=== PATIENT | male | born 1995 | race Caucasian/White ===

== ENCOUNTER 2016-11-26 11:18 | Emergency (ER) | payer OTHER ==
[~2016-11-26] VITALS: Ht 167.6 cm; Wt 74.8 kg
[2016-11-26 11:23] VITALS: BP 151/88
--- NOTE | 2016-11-26 11:33 | ED ANIMAL BITE/WOUND CHECK ---
History of Present Illness General Chief Complaint: General Adult Stated Complaint: 2ND RABIES SHOT Source: patient, old records Exam Limitations: no limitations Vital Signs & Intake/Output Vital Signs & Intake/Output Vital Signs Date Time Temp Pulse Resp B/P B/P Pulse O2 O2 Flow FiO2 Mean Ox Delivery Rate 11/26 1123 98.8 68 18 151/88 99 Room Air Allergies Coded Allergies: Penicillins (Intermediate, UNSURE 11/26/16) cat pelt standardized allergenic ex (UNKNOWN 11/26/16) watermelon (UNKNOWN 11/26/16) Triage Note: HERE FOR SECOND RABIES SHOT. BIT BY A DOG ON 11/23. Triage Nurses Notes Reviewed? yes Onset: Abrupt Duration: day(s): (3), better Timing: remote history Is Injury an Animal Bite? Yes Animal Type: dog Severity: mild Severity Numbers: 3 No Modifying Factors: none Associated Symptoms: DENIES HPI: 21-year-old male presents for his second rabies vaccine after he was bit by a dog 3 days ago he was seen at [facility] at the time. He was started on anti-lice which she is still taking. He denies any other complaints there is no pain no fever chills discharge from the wound. He is otherwise without any complaints (JOHNIE MEDINA) Past History Travel History Traveled to [place] past 21 day No Medical History Any Pertinent Medical History? none Surgical History Surgical History: none Psychosocial History What is your primary language Estonian Tobacco Use: Never used ETOH Use: denies use Family History Hx Contributory? No (JOHNIE MEDINA) Review of Systems Review of Systems Constitutional: Reports: see HPI. All Other Systems: Reviewed and Negative Comments Review of systems: See HPI, All other systems negative. Constitutional, no chills no fever, no malaise HEENT: No visual changes no sore throat no congestion, Cardiovascular: No chest pain , no palpitation , Skin: no rashes, no change in skin Respiratory: No dyspnea no cough no sputum GI: No nausea no vomiting, no diarrhea, Muscle skeletal: No joint pain, , no back pain, no neck pain, Neurologic: no headache Psych: No stress Heme/endocrine: No bruising Immunology: No lymphadenopathy (JOHNIE MEDINA) Physical Exam Physical Exam General Appearance: well developed/nourished, no apparent distress, alert Comments: Well-developed well-nourished patient in no apparent distress. HEENT: Atraumatic,healing abrasions noted to the right nostril no surrounding induration and erythema extraocular motion intact Neck: Supple, FROM Back: FROM Respiratory: No respiratory distress. Patient speaking in full complete sentences. Breath sounds clear to auscultation bilaterally: NO W/R/R Extremities: full range of motion Neuro: awake, alert, and oriented to person, place and time. There were no obvious focal neurologic abnormalities. Skin: Warm & dry;No appreciable rash on exposed skin Psych: Mood affect normal, normal memory normal judgment. (JOHNIE MEDINA) Progress Differential Diagnosis: abscess, cellulitis Plan of Care: I discussed with the patient at length all of their results. Plan of care he has the schedule and return as to following up for his final to rabies vaccinations I had an extensive conversation regarding need for close follow up with their primary care physician this week as well as return precautions. I answered all of their questions, they feel comfortable with the plan and follow- up care. Advised to continue with Keflex he feels comfortable plan (JOHNIE MEDINA) Departure Departure Time of Disposition: 1134 Disposition: HOME OR SELF CARE Condition: Stable Clinical Impression Primary Impression: Rabies, need for prophylactic vaccination against Referrals: UNKNOWN (PCP/Family) Additional Instructions: Follow-up as scheduled for your final to rabies vaccinations return anytime sooner with any concerns or signs of infection. Departure Forms: Customer Survey General Discharge Information (JOHNIE MEDINA) PA/ELECTRONIC ASSEMBLER [employer] LEADER Co-Sign Statement Statement: ED Attending supervision documentation- I saw and evaluated the patient. I have also reviewed all the pertinent lab results and diagnostic results. I agree with the findings and the plan of care as documented in the PA's/ELECTRONIC ASSEMBLER GROUP LEADER's documentation. x I have reviewed the ED Record and agree with the PA's/ELECTRONIC ASSEMBLER GROUP LEADER's documentation. [] Additions or exceptions (if any) to the PAs/ELECTRONIC ASSEMBLER GROUP LEADER's note and plan are summarized below: [] (YOSEF SALEEM,ROSALIA)
== END 2016-11-26 12:16 ==
LOC: ERH 11:18
DX: Z20.3 Contact with and (suspected) exposure to rabies (principal)
CPT/HCPCS: 90471; 99281

== ENCOUNTER 2016-12-08 06:22 | Emergency (ER) | payer OTHER ==
--- NOTE | 2016-12-08 06:29 | ED GENERAL ADULT ---
History of Present Illness General Chief Complaint: General Adult Stated Complaint: NEEDS LAST RABIES SHOT Source: patient Exam Limitations: no limitations Vital Signs & Intake/Output Vital Signs & Intake/Output Vital Signs Date Time Temp Pulse Resp B/P B/P Pulse O2 O2 Flow FiO2 Mean Ox Delivery Rate 12/08 0630 97.2 70 20 133/63 99 Room Air Allergies Coded Allergies: Penicillins (Intermediate, UNSURE 11/26/16) cat pelt standardized allergenic ex (UNKNOWN 11/26/16) watermelon (UNKNOWN 11/26/16) Triage Note: Pt presents to ER for last rabies shot. Pt states he was bit by a dog on November 23. Triage Nurses Notes Reviewed? yes Onset: Abrupt Duration: week(s): Timing: recent history Injury Environment: home Severity: mild Modifying Factors: Improves With: rest. Associated Symptoms: "i GOT BIT IN THE FACE BY A DOG... i'M HERE FOR MY LAST RABIES SHOT." HPI: 21yo gentleman in prior good health, presents for his last rabies vaccine. He states that he was bit by dog approximately one month ago. The dog's vaccination status was uncertain. He received stitches. He began the rabies series. His facial wounds healed well. He is now feeling fine. He has no other issues. Past History Travel History Traveled to [place] past 21 day No Medical History Any Pertinent Medical History? see below for history Neurological: NONE EENT: NONE Surgical History Surgical History: none Psychosocial History What is your primary language Persian Tobacco Use: Never used Family History Hx Contributory? No Review of Systems Review of Systems Constitutional: Reports: no symptoms. EENTM: Reports: no symptoms. Respiratory: Reports: no symptoms. Cardiovascular: Reports: no symptoms. GI: Reports: no symptoms. Genitourinary: Reports: no symptoms. Musculoskeletal: Reports: no symptoms. Skin: Reports: no symptoms. Neurological/Psychological: Reports: no symptoms. Hematologic/Endocrine: Reports: no symptoms. Immunologic/Allergic: Reports: no symptoms. All Other Systems: Reviewed and Negative Physical Exam Physical Exam General Appearance: well developed/nourished, no apparent distress Head: well healed surgical scars on right nare and above right eyebrow. Eyes: Bilateral: normal appearance. Ears, Nose, Throat: normal pharynx, normal ENT inspection Neck: normal inspection, supple, full range of motion Respiratory: no respiratory distress Cardiovascular: regular rate/rhythm Gastrointestinal: normal bowel sounds, soft, non-tender, no organomegaly Back: normal inspection Extremities: normal inspection Neurologic/Psych: no motor/sensory deficits, awake, alert, oriented x 3 Skin: intact, normal color, warm/dry Core Measures ACS in differential dx? No CVA/TIA Diagnosis: No Severe Sepsis Present: No Septic Shock Present: No Progress Differential Diagnoses I considered the following diagnoses in my evaluation of the patient: potential rabies exposure vs other. Plan of Care: Current Medications Sig/Jarad Start time Last Medication Dose Stop Time Status Admin Rabies Vaccine 1 SYR ONCE ONE 12/08 629 UNVr (Rabies (Vaccine) 12/08 630 Inj (1ML)) Initial ED EKG: none Departure Departure Disposition: HOME OR SELF CARE Condition: Stable Clinical Impression Primary Impression: Contact with and (suspected) exposure to rabies Referrals: UNKNOWN (PCP/Family) Departure Forms: Customer Survey General Discharge Information Critical Care Note Critical Care Note Critical Care Time: non-applicable
[2016-12-08 06:30] VITALS: BP 133/63
== END 2016-12-08 06:39 ==
LOC: ERH 06:22
DX: Z20.3 Contact with and (suspected) exposure to rabies (principal)
CPT/HCPCS: 90471; 99281